=== PATIENT | male | born 1950 | race Caucasian/White ===

== ENCOUNTER 2019-03-09 16:47 | Emergency (ER) | payer OTHER ==
[~2019-03-09] VITALS: Ht 177.8 cm; Wt 117.9 kg
[2019-03-09 18:01] LABS: BASOPHIL % 0.7 % (0-2); CALCIUM 7.9 mg/dL (8.5-10.1); CARBON DIOXIDE 31.7 mmol/L (21-32); CHLORIDE SERUM 102 mmol/L (98-107); CREATININE SERUM 0.9 mg/dL (0.7-1.3); GFR1 > 60 mL/min; GLUCOSE SERUM 224 mg/dL (74-106); PLATELET COUNT 303 x10^3mcL (130-400); POTASSIUM SERUM 3.7 mmol/L (3.5-5.1); RED CELL DISTRIBUTION WIDTH 14.3 % (11.5-14.5); SODIUM SERUM 137 mmol/L (136-145)
[2019-03-09 18:06] LABS: ALBUMIN 3.3 g/dL (3.4-5.0); ALKALINE PHOSPHATASE 139 U/L (46-116); ALT/SGPT 20 U/L (16-63); AST/SGOT 8 U/L (15-37); BILIRUBIN TOTAL 0.18 mg/dL (0.20-1.00); TOTAL PROTEIN, SERUM 6.9 g/dL (6.4-8.2)
[2019-03-09 19:47] VITALS: BP 175/76
== END 2019-03-09 19:47 | disposition other institution (70) ==
LOC: ED 16:47
PROVIDERS: Emergency Medicine
DX: E11.65 Type 2 diabetes mellitus with hyperglycemia (principal); I10 Essential (primary) hypertension; E11.9 Type 2 diabetes mellitus without complications; G89.29 Other chronic pain
CPT/HCPCS: 82962; Q0092

== ENCOUNTER 2019-03-09 16:47 | Emergency (ER) | payer OTHER | END 2019-03-09 19:47 | disposition other institution (70) | LOC: ED 16:47 | DX: Z02.89 Encounter for other administrative examinations (principal) ==